=== PATIENT | male | born 1935 | race Caucasian/White ===

== ENCOUNTER 2020-01-18 10:45 | Inpatient (IN) | payer MEDICARE, OTHER ==
[2020-01-18] VITALS (8 sets, daily range): BP systolic 120–145; BP diastolic 50–76
[~2020-01-18] VITALS: Ht 172.7 cm; Wt 74.0 kg
[2020-01-18] MEDS ORDERED: SODIUM CHLORIDE 0.9% 1,000 ML IV ONE (11:00)
[2020-01-18 11:34] LABS: Eosinophils # (auto) 0 10 ^3/uL (0-0.8); Monocytes # (auto) 0.5 10 ^3/uL (0-1.3)
[2020-01-18 11:35] LABS: Basophils # (auto) 0.4 10 ^3/uL (0-0.2); Basophils % (auto) 4.8 % (0.0-2.0); Eosinophils % (auto) 0.4 % (0.0-7.0); Lymphocytes # (auto) 0.7 10 ^3/uL (0.4-5.4); Lymphocytes % (auto) 8.8 % (10.0-50.0); Mean Corpuscular Hemoglobin 40.4 pg (28.0-32.0); Mean Corpuscular Hgb Conc. 33.4 g/dL (32.0-36.0); Mean Corpuscular Volume 121.1 fL (80.0-100.0); Monocytes % (auto) 6.5 % (0.0-12.0); Neutrophils # (auto) 5.9 10 ^3/uL (1.6-8.6); Neutrophils % (auto) 79.5 % (37.0-80.0); Platelet Count (auto) 699 10^3/uL (140-450); Red Blood Cells 1.24 10^6/uL (4.5-5.90); White Blood Cell 7.5 10^3/uL (4.4-10.8)
[2020-01-18 11:36] LABS: Red Cell Distribution Width 28.8 % (11.8-14.3)
[2020-01-18 11:56] LABS: Partial Thromboplastin Time 46.4 sec (23.0-31.2)
[2020-01-18 11:59] LABS: INR 4.87 (0.9-1.15)
[2020-01-18 12:14] LABS: Albumin 2.9 g/dL (3.4-5.0); Calcium 8.4 mg/dL (8.5-10.1); Magnesium 2.6 mg/dL (1.6-2.6); Potassium 4.2 mmol/L (3.5-5.1)
[2020-01-18 12:22] LABS: BUN/Creatinine Ratio 23.3; Bilirubin, Total 0.6 mg/dL (0.2-1.0); Total Protein 6.2 g/dL (6.4-8.2)
[2020-01-18] MEDS ORDERED: FOLIC ACID 1 MG TAB PO ONE (13:15)
[2020-01-18] MEDS ORDERED: MORPHINE SULF INJ 2 MG/ML SYRINGE 1ML IV PRN ×3 (13:15→13:30)
[2020-01-18] MEDS ORDERED: PANTOPRAZOLE 40 MG/10 ML VIAL INJ IV ONE (13:15)
[2020-01-18] MEDS ORDERED: CYANOCOBALAMIN (B-12) 1000 MCG/1 ML VIAL IM ONE (13:15)
[2020-01-18] MEDS ORDERED: LACTATED RINGER'S 1,000 ML IV ONE (13:15)
[2020-01-18] MEDS ORDERED: NITROGLYCERIN 0.4 MG SL TAB SL PRN ×2 (13:15→13:30)
[2020-01-18] MEDS ORDERED: ALUM & MAG HYDROX-SIMETH LIQ(MAALOX) 30 ML PO PRN (13:30)
[2020-01-18] MEDS ORDERED: levoFLOXacin 500MG 100 ML IV ONE (13:30)
[2020-01-18] MEDS ORDERED: FUROSEMIDE 20 MG/2 ML VIAL IV ONE (13:30)
[2020-01-18] MEDS ORDERED: ACETAMINOPHEN 325 MG TAB PO PRN (13:30)
[2020-01-18] MEDS ORDERED: DOCUSATE SOD 100 MG CAP PO PRN (13:30)
[2020-01-18] MEDS ORDERED: HYDROcodone-ACET 5/325MG TAB PO PRN (13:30)
[2020-01-18] MEDS ORDERED: ONDANSETRON HCL 4 MG/2 ML VIAL IV PRN (13:30)
[2020-01-18] MEDS ORDERED: LANS15CA21 PO (13:42)
[2020-01-18] MEDS ORDERED: MULT1CHW52 PO (13:42)
[2020-01-18] MEDS ORDERED: PANT40TA2 PO (13:42)
[2020-01-18] MEDS ORDERED: ZOLP-158 PO (13:42)
[2020-01-18] MEDS ORDERED: CYAN1TAB11 PO (13:42)
[2020-01-18] MEDS ORDERED: ONDA-155 PO (13:42)
[2020-01-18] MEDS ORDERED: TAMS0.4C36 PO (13:42)
[2020-01-18] MEDS ORDERED: PRED-158 PO (13:42)
[2020-01-18] MEDS ORDERED: LORA1TAB23 PO (13:42)
[2020-01-18] MEDS ORDERED: DOCU100T7 PO (13:42)
[2020-01-18] MEDS ORDERED: PAR20T PO (13:42)
[2020-01-18] MEDS ORDERED: HYDR500C PO (13:42)
[2020-01-18] MEDS ORDERED: methylPREDNISolone SOD SUCC 125 MG/2 ML VL IV ONE (13:45)
[2020-01-18] MEDS ORDERED: FIBECHW2 PO (13:47)
[2020-01-18] MEDS ORDERED: MULTIPLE VITAMINS W/ MINERALS TAB PO ONE (16:15)
[2020-01-18] MEDS: SOD CHL 0.45% 1,000 ML IV SCH (16:22)
[2020-01-18] MEDS: Ensure Enlive Strawberry 8oz Bottle PO SCH (18:55)
[2020-01-18] MEDS: FUROSEMIDE 20 MG/2 ML VIAL IV SCH (18:55)
[2020-01-18] MEDS: TAMSULOSIN HYDROCHLORIDE 0.4 MG CAP PO SCH (18:56)
[2020-01-18] MEDS: methylPREDNISolone SOD SUCC 40 MG/ML VL IV SCH (21:55)
[2020-01-18] MEDS: PANTOPRAZOLE 40 MG/10 ML VIAL INJ IV SCH (21:55)
[2020-01-18] MEDS: LORazepam 0.5 MG TAB PO PRN (21:57)
[2020-01-18] MEDS: IPRATROPIUM BROM 0.5 MG/2.5ML INH SOL NEB SCH ×2 (22:42→22:43)
[2020-01-18 23:56] LABS: % Iron Saturation 85.9 % (20-55)
[2020-01-19] VITALS (8 sets, daily range): BP systolic 116–145; BP diastolic 52–66
[2020-01-19] MEDS: methylPREDNISolone SOD SUCC 40 MG/ML VL IV SCH (06:09)
[2020-01-19] MEDS: SOD CHL 0.45% 1,000 ML IV SCH ×2 (06:10→22:50)
[2020-01-19] MEDS: FUROSEMIDE 20 MG/2 ML VIAL IV SCH ×2 (06:10→18:06)
[2020-01-19] MEDS: IPRATROPIUM BROM 0.5 MG/2.5ML INH SOL NEB SCH ×5 (06:23→22:00)
[2020-01-19] MEDS: Ensure Enlive Strawberry 8oz Bottle PO SCH ×3 (08:33→18:06)
[2020-01-19] MEDS: levoFLOXacin 500MG 100 ML IV SCH (09:31)
[2020-01-19] MEDS: PANTOPRAZOLE 40 MG/10 ML VIAL INJ IV SCH ×2 (09:37→21:09)
[2020-01-19] MEDS: PARoxetine 20 MG TAB PO SCH (09:42)
[2020-01-19] MEDS: FOLIC ACID 1 MG TAB PO SCH (09:42)
[2020-01-19] MEDS: CYANOCOBALAMIN 500 MCG TAB PO SCH (09:48)
[2020-01-19] MEDS: MULTIPLE VITAMINS W/ MINERALS TAB PO SCH (09:48)
[2020-01-19 12:47] LABS: Albumin 3.1 g/dL (3.4-5.0); Calcium 8.6 mg/dL (8.5-10.1); Potassium 4.7 mmol/L (3.5-5.1)
[2020-01-19 12:51] LABS: Bilirubin, Total 1.1 mg/dL (0.2-1.0); Total Protein 6.4 g/dL (6.4-8.2)
[2020-01-19 13:53] LABS: Hemoglobin 7.6 g/dL (13.5-17.5); Mean Corpuscular Hemoglobin 37.1 pg (28.0-32.0); White Blood Cell 6.3 10^3/uL (4.4-10.8)
[2020-01-19 13:54] LABS: Mean Corpuscular Hgb Conc. 34.6 g/dL (32.0-36.0); Mean Corpuscular Volume 107.1 fL (80.0-100.0); Platelet Count (auto) 709 10^3/uL (140-450); Red Blood Cells 2.05 10^6/uL (4.5-5.90)
[2020-01-19 14:08] LABS: Basophils % (manual) 0 (0.0-2.0); Blast Cells 0; Eosinophils % (manual) 0 (0-7); Promyelocytes % 0; Reactive Lymphocytes 0; Red Cell Distribution Width 29.4 % (11.8-14.3)
[2020-01-19 14:09] LABS: INR 2.92 (0.9-1.15)
[2020-01-19 14:42] LABS: Band Neutrophils % (manual) 6; Lymphocytes % (manual) 5 (10.0-50.0)
[2020-01-19 14:43] LABS: Metamyelocytes % 1; Monocytes % (manual) 1 (0-12); Myelocytes % 1
[2020-01-19] MEDS: LORazepam 0.5 MG TAB PO PRN ×2 (16:31→21:09)
[2020-01-19 17:28] LABS: Urine Bacteria FEW /hpf (None Seen); Urine Blood TRACE /uL (Negative); Urine Budding Yeast MODERATE /hpf (None Seen); Urine Mucus FEW (None Seen); Urine Specific Gravity 1.014 (1.001-1.035); Urine WBC 57 /hpf (0 - 3)
[2020-01-19 17:40] LABS: Alcohol, Urine < 3.0 mg/dL (0-10); Amphetamine Screen, Urine NEGATIVE (NEGATIVE); Barbiturate Scree,Urine NEGATIVE (NEGATIVE); Benzodiazephine Screen, Urine NEGATIVE (NEGATIVE); Cannabinoid Screen, Urine NEGATIVE (NEGATIVE); Cocaine Screen, Urine NEGATIVE (NEGATIVE); Opiate Scree,Urine NEGATIVE (NEGATIVE); Phencyclidine Screen, Urine NEGATIVE (NEGATIVE)
[2020-01-19] MEDS: TAMSULOSIN HYDROCHLORIDE 0.4 MG CAP PO SCH (18:06)
[2020-01-20] MEDS: IPRATROPIUM BROM 0.5 MG/2.5ML INH SOL NEB SCH ×3 (01:27→10:00)
[2020-01-20 05:00] VITALS: BP_SYST 124; BP_DIAS 51; BP_DIAS 89
[2020-01-20] MEDS: FUROSEMIDE 20 MG/2 ML VIAL IV SCH (05:26)
[2020-01-20 06:28] LABS: Hematocrit 22.3 % (41.0-53.0); Hemoglobin 7.8 g/dL (13.5-17.5); Mean Corpuscular Hemoglobin 37.8 pg (28.0-32.0); Mean Corpuscular Volume 108.1 fL (80.0-100.0); Platelet Count (auto) 613 10^3/uL (140-450); Red Blood Cells 2.07 10^6/uL (4.5-5.90); White Blood Cell 14.8 10^3/uL (4.4-10.8)
[2020-01-20 06:35] LABS: Basophils % (manual) 0 (0.0-2.0); Blast Cells 0; Metamyelocytes % 0; Promyelocytes % 0; Reactive Lymphocytes 0; Red Cell Distribution Width 30.8 % (11.8-14.3)
[2020-01-20 06:39] LABS: INR 1.76 (0.9-1.15)
[2020-01-20 06:42] LABS: Calcium 8.3 mg/dL (8.5-10.1)
[2020-01-20 06:45] LABS: BUN/Creatinine Ratio 26.5
[2020-01-20 06:48] LABS: Total Protein 6.3 g/dL (6.4-8.2)
[2020-01-20] MEDS ORDERED: LEVOTHYROXINE SODIUM 25 MCG TAB PO SCH (07:00)
[2020-01-20 07:21] LABS: Band Neutrophils % (manual) 7; Eosinophils % (manual) 1 (0-7); Lymphocytes % (manual) 4 (10.0-50.0); Monocytes % (manual) 15 (0-12); Myelocytes % 1
[2020-01-20 08:00] VITALS: BP 118/54
[2020-01-20] MEDS: Ensure Enlive Strawberry 8oz Bottle PO SCH ×2 (08:00→12:00)
[2020-01-20 09:00] VITALS: BP 118/54
[2020-01-20] MEDS: levoFLOXacin 500MG 100 ML IV SCH (09:16)
[2020-01-20] MEDS: PANTOPRAZOLE 40 MG/10 ML VIAL INJ IV SCH (09:16)
[2020-01-20] MEDS: PARoxetine 20 MG TAB PO SCH (09:17)
[2020-01-20] MEDS: FOLIC ACID 1 MG TAB PO SCH (09:25)
[2020-01-20] MEDS: MULTIPLE VITAMINS W/ MINERALS TAB PO SCH (09:26)
[2020-01-20] MEDS: CYANOCOBALAMIN 500 MCG TAB PO SCH (09:26)
[2020-01-20 11:20] VITALS: BP 100/59
== END 2020-01-20 13:00 | disposition hospice, home (50) | DRG 811 ==
LOC: EDBD 10:45 → EDSEX 10:45 → ER 10:45 → TELE 10:46 → TELE-EAST 16:10 → TELE-WESTW 01-19 04:22
PROVIDERS: ADMIT Hospitalist; ATTEND Hospitalist
PROC: 30233N1 Transfusion of Nonautologous Red Blood Cells into Peripheral Vein, Percutaneous Approach (ICD-10-PCS; principal; 2020-01-18)
PROC: 30233K1 Transfusion of Nonautologous Frozen Plasma into Peripheral Vein, Percutaneous Approach (ICD-10-PCS; 2020-01-18)
DX: D64.9 Anemia, unspecified (principal); J18.9 Pneumonia, unspecified organism; I48.19 Other persistent atrial fibrillation; I48.92 Unspecified atrial flutter; J90 Pleural effusion, not elsewhere classified; D68.4 Acquired coagulation factor deficiency; E44.1 Mild protein-calorie malnutrition; D47.3 Essential (hemorrhagic) thrombocythemia; D75.89 Other specified diseases of blood and blood-forming organs; Z20.828 Contact with and (suspected) exposure to other viral communicable diseases; E03.9 Hypothyroidism, unspecified; F03.90 Unspecified dementia, unspecified severity, without behavioral disturbance, psychotic disturbance, mood disturbance, and anxiety; F32.9 Major depressive disorder, single episode, unspecified; H91.10 Presbycusis, unspecified ear; I70.8 Atherosclerosis of other arteries; K21.9 Gastro-esophageal reflux disease without esophagitis; K29.70 Gastritis, unspecified, without bleeding; N20.0 Calculus of kidney; N28.1 Cyst of kidney, acquired; N40.0 Benign prostatic hyperplasia without lower urinary tract symptoms; Z79.01 Long term (current) use of anticoagulants; Z90.49 Acquired absence of other specified parts of digestive tract
CPT/HCPCS: 36415; 70450; 71045; 74176; 80053; 80061; 80307; 81001; 82150; 82270; 82607; 82746; 83036; 83540; 83550; 83605; 83690; 83735; 83880; 84443; 84484; 85007; 85025; 85027; 85610; 85730; 86038; 86850; 86880; 86885; 86900; 86901; 86920; 87040; 87086; 87088; 87426; 93005; 93306; 94640; 99291; C9113; G0378; J1956